=== PATIENT | female | born 1955 | race Caucasian/White ===

== ENCOUNTER → 2017-01-18 | Outpatient (CLI) | payer MEDICARE ==
--- NOTE | 2017-01-18 17:06 | PCVCIMAG ---
APPROVED REPORT Exam: Nuclear Stress Test Indication: Chest Pain, Dyspnea, Hx of Panceatitis Patient Location: Out-Patient Stress Nurse: Twyla Cooper RN, Tammy Mayer RN [place] Tech:Neal EscobarDANNYB Ht: 5 ft 6 in Wt: 170 lbs BSA: 1.87 m2 HR: 100 bpm BP: 123/76 mmHg BMI: 27.4 Rhythm: Tachycardia Medical History Medical History: Hyperlipidemia, Smoker, Age Medications: Levothyroxine, Albuterol, ASA, Wellbutrin, Advair Allergies: Many allergies, none related to test Pretest Chest Pain Characteristics: No chest pain Exercise History: Sedentary NM EXAM: Myocardial Perfusion REST/STRESS Imaging Protocol: Rest Tc-99m/Stress Tc-99m 1 day Resting Data Rest SPECT myocardial perfusion imaging was performed in supine position 45 minutes following the intravenous injection of 10.3 mCi of Tc-99m Sestamibi. Time of rest injection: Date: 01/18/2017 Pharmacologic Stress Pharmacologic stress test was performed by injecting Regadenoson 0.4 mg IV push followed by the intravenous injection of 32.6 mCi of Tc-99m Sestamibi. Time of stress injection: Date: 01/18/2017 The images were gated to evaluate regional wall motion and calculate left ventricular ejection fraction. Study Data Post stress, the left ventricular ejection was 62%.. SSS: 4 SRS: 7 SDS: 0 TID = 1.00. Perfusion This area thickens and moves normally and is most consistent with attenuation artifact although mild ischemia cannot be excluded. CLINICAL CORRELATION SUGGESTED There is a large area of severely reduced uptake in the entire segment of the anterior wall which is seen on the stress images and improves on the resting images slightly. Wall Motion Normal left ventricular wall motion. Nuclear Conclusion 1. LOW TO INTERMEDIATE RISK STUDY Interpreted by: Kerri Ramesh MD Electronically Approved: 01/18/2017 17:04:57 Stress Test Details Stress Test: Pharmacologic stress testing performed using 0.4 mg of regadenoson per 5 mL given IV over 10 seconds. HR Resting HR: 100 bpmMax Heart Rate (APMHR): 159 bpm Max HR Achieved: 115 bpmTarget HR (85% APMHR): 135 bpm % of APMHR: 72 Recovery HR: 104 bpm BP Resting BP: 123/76 mmHg Max BP: 162/80 mmHg ECG Resting ECG: Sinus Tachycardia Stress ECG: Sinus Tachycardia ST Change: Non-ischemic Maximum ST Deviation: .70 mm Arrhythmia: None Recovery ECG: Sinus Tachycardia Clinical Reason for Termination: Completed protocol Stress Symptoms: Chest Pain, Leg fatigue Exercise duration: min 55 sec Symptoms resolved with caffeine. Stress ECG Conclusion 1. ADEQUATE RESPONSE TO IV LEXISCAN 2. INADEQUATE HEART RATE FOR ECG DIAGNOSIS <Conclusion> 1. ADEQUATE RESPONSE TO IV LEXISCAN 2. INADEQUATE HEART RATE FOR ECG DIAGNOSIS
== END | disposition home or self-care (01) ==
LOC: PCVCIMAG 07:52
PROVIDERS: ATTEND Internal Medicine
DX: R07.9 Chest pain, unspecified (principal); R00.0 Tachycardia, unspecified; K85.90 Acute pancreatitis without necrosis or infection, unspecified; E78.5 Hyperlipidemia, unspecified; K52.9 Noninfective gastroenteritis and colitis, unspecified; E03.9 Hypothyroidism, unspecified; Z87.891 Personal history of nicotine dependence
CPT/HCPCS: 36415; 78452; 93017; A9500

== ENCOUNTER → 2019-06-03 | Outpatient (CLI) | payer MEDICARE | END | disposition home or self-care (01) | LOC: PCVCCLINIC 11:55 | PROVIDERS: ATTEND Internal Medicine | DX: I50.32 Chronic diastolic (congestive) heart failure (principal); D83.9 Common variable immunodeficiency, unspecified; J96.11 Chronic respiratory failure with hypoxia; J45.50 Severe persistent asthma, uncomplicated; E78.5 Hyperlipidemia, unspecified; K21.9 Gastro-esophageal reflux disease without esophagitis; F90.0 Attention-deficit hyperactivity disorder, predominantly inattentive type; F17.201 Nicotine dependence, unspecified, in remission; Z82.49 Family history of ischemic heart disease and other diseases of the circulatory system; Z87.891 Personal history of nicotine dependence; Z88.8 Allergy status to other drugs, medicaments and biological substances | CPT/HCPCS: 36415; 80061; 93005; G0463 ==